=== PATIENT | female | born 1990 | race Caucasian/White ===

== ENCOUNTER → 2018-01-14 | Outpatient (CLI) | payer BC | LOC: FIMAGING 17:23 | PROVIDERS: ATTEND Family Medicine | DX: M25.531 Pain in right wrist (principal) ==

== ENCOUNTER → 2018-02-04 | Outpatient (CLI) | payer BC | LOC: FIMAGING 16:45 | PROVIDERS: ATTEND Family Medicine | DX: M25.531 Pain in right wrist (principal) ==

== ENCOUNTER → 2018-03-11 | Outpatient (CLI) | payer BC | LOC: FIMAGING 18:48 | PROVIDERS: ATTEND Family Medicine | DX: M67.431 Ganglion, right wrist (principal); M77.8 Other enthesopathies, not elsewhere classified ==